=== PATIENT | female | born 1960 | race African-American/Black ===

== ENCOUNTER 2016-08-11 12:20 | Emergency (ER) | payer OTHER ==
[~2016-08-11] VITALS: Ht 157.5 cm; Wt 90.7 kg
[~2016-08-11 12:20] MED LIST: AMLODIPINE10 MG PO; BENICAR20 MG PO; DILANTIN100 M1 PO; EXTENDED PHENY100 MG PO; HYDRODIURIL 2525 MG PO; LISINOPRIL40 MG PO; MOTRIN800 MG PO; PREDNISONE 20MG20 MG PO; VICODIN5-300 PO; ZOFRAN ODT4 M1 SL
[2016-08-11 12:33] VITALS: BP 150/78
== END 2016-08-11 13:53 | disposition admitted as inpatient to this hospital (09) ==
LOC: ERH 12:20
DX: R05 Cough (principal)